=== PATIENT | female | born 1995 | race Caucasian/White ===

== ENCOUNTER 2016-12-30 19:41 | Emergency (ER) | payer MEDICAID ==
[2016-12-30 19:47] VITALS: BP 119/68
== END 2016-12-30 23:02 | disposition left against medical advice (07) ==
LOC: ED 19:41
DX: K08.89 Other specified disorders of teeth and supporting structures (principal); Z53.21 Procedure and treatment not carried out due to patient leaving prior to being seen by health care provider
CPT/HCPCS: 99281

== ENCOUNTER 2017-02-07 13:54 | Emergency (ER) | payer MEDICAID ==
[2017-02-07 14:00] VITALS: BP 114/69
--- NOTE | 2017-02-07 14:49 | UC ---
Complaint Female HPI - HPI Summary HPI Summary: TWO DAYS OF URINARY PRESSURE FREQUENCY, BURNING WITH URINATION. NO BACK PAIN. NO ABDOMINAL PAIN - History Of Current Complaint Chief Complaint: UCGU Stated Complaint: URINARY ISSUE Time Seen by Provider: 02/07/17 13:56 Hx Obtained From: Patient Hx Last Menstrual Period: 01/15/17 Onset/Duration: Gradual Onset, Lasting Days, Still Present Timing: Intermittent Severity Initially: Mild Severity Currently: Moderate Character: Dull, Burning Aggravating Factor(s): Urination Associated Signs And Symptoms: Negative: Fever, Back Pain, Vaginal Discharge, Nausea, Vomiting(# Of Episodes =) - Risk Factors Ectopic Risk Factor: Negative - Allergies/Home Medications Allergies/Adverse Reactions: Allergies Allergy/AdvReac Type Severity Reaction Status Date / Time No Known Allergies Allergy Verified 02/07/17 14:01 PMH/Surg Hx/FS Hx/Imm Hx Previously Healthy: Yes - Surgical History Surgical History: None - Family History Known Family History: Negative: Renal Disease - Social History Occupation: Employed Full-time Lives: With Family Alcohol Use: None Substance Use Type: None Smoking Status (MU): Never Smoked Tobacco - Immunization History Most Recent Influenza Vaccination: 03/31/2016 Most Recent Tetanus Shot: 03/31/2016 Most Recent Pneumonia Vaccination: none Review of Systems Constitutional: Negative Skin: Negative Eyes: Negative ENT: Negative Respiratory: Negative Cardiovascular: Negative Gastrointestinal: Negative Genitourinary: Dysuria, Frequency, Urgency Motor: Negative Neurovascular: Negative Musculoskeletal: Negative Neurological: Negative Psychological: Negative All Other Systems Reviewed And Are Negative: Yes Physical Exam Triage Information Reviewed: Yes Appearance: Well-Appearing, No Pain Distress, Well-Nourished Vital Signs: Initial Vital Signs Temp 98.8 F 02/07/17 13:56 Pulse 81 02/07/17 13:56 Resp 18 02/07/17 13:56 BP 114/69 02/07/17 13:56 Pulse Ox 100 02/07/17 13:56 Vital Signs Reviewed: Yes Eye Exam: Normal ENT Exam: Normal ENT: Positive: Normal ENT inspection, Hearing grossly normal, Pharynx normal, TMs normal Dental Exam: Normal Neck exam: Normal Neck: Positive: Supple, Nontender, No Lymphadenopathy Respiratory Exam: Normal Respiratory: Positive: Chest non-tender, Lungs clear, Normal breath sounds, No respiratory distress Cardiovascular Exam: Normal Cardiovascular: Positive: RRR, No Murmur, Pulses Normal Abdominal Exam: Normal Abdomen Description: Positive: Nontender, No Organomegaly, Soft. Negative: CVA Tenderness (R), CVA Tenderness (L) Musculoskeletal Exam: Normal Musculoskeletal: Positive: Strength Intact, ROM Intact Neurological Exam: Normal Psychological Exam: Normal Skin Exam: Normal Complaint Female Dx - Differential Dx/Diagnosis Differential Diagnosis/HQI/PQRI: Urinary Tract Infection Provider Diagnoses: URINARY TRACT INFECTION Discharge - Discharge Plan Condition: Stable Disposition: HOME Prescriptions: Phenazopyridine TAB* [Pyridium 100 mg TAB*] 100 mg PO TID PRN #15 tab PRN Reason: Pain Sulfamethox/Trimethoprim DS* [Bactrim DS 800/160 TAB*] 1 tab PO BID #10 tab Patient Education Materials: Urinary Tract Infection in Women (ED) [place]errals: [facility] [place] [facility] [place]] No Primary Care Phys,NOPCP [Primary Care Provider] -
== END 2017-02-07 14:40 | disposition home or self-care (01) ==
LOC: UCEAST 13:54
DX: N39.0 Urinary tract infection, site not specified (principal); Z32.02 Encounter for pregnancy test, result negative
CPT/HCPCS: 81003; 84702; 87086; 99212; G0463

== ENCOUNTER 2017-03-22 15:47 | Emergency (ER) | payer MEDICAID ==
[2017-03-22 15:57] VITALS: BP 96/58
--- NOTE | 2017-03-22 16:00 | UC ---
Dental HPI - HPI Summary HPI Summary: has an appointment for dental extraction of left lower 2nd molar on Thursday--- beginning Thursday patient had an increase in pain - History of Current Complaint Chief Complaint: UCDentalProblem Stated Complaint: TOOTHACHE Time Seen by Provider: 03/22/17 15:51 Hx Obtained From: Patient Hx Last Menstrual Period: 01/15/17 ?: No Onset/Duration: Gradual Onset, Still Present, Worse Since - 2 days ago Severity: Severe Pain Intensity: 10 Pain Scale Used: 0-10 Numeric Aggravating Factor(s): Heat, Cold, Chewing Alleviating Factor(s): Nothing Related History: Previous Dental Care on Same Tooth - Allergies/Home Medications Allergies/Adverse Reactions: Allergies Allergy/AdvReac Type Severity Reaction Status Date / Time No Known Allergies Allergy Verified 03/22/17 15:57 PMH/Surg Hx/FS Hx/Imm Hx Previously Healthy: Yes - Surgical History Surgical History: None - Family History Known Family History: Positive: None Negative: Renal Disease - Social History Occupation: Employed Full-time Lives: With Family Alcohol Use: None Substance Use Type: None Smoking Status (MU): Never Smoked Tobacco - Immunization History Most Recent Influenza Vaccination: 03/31/2016 Most Recent Tetanus Shot: 03/31/2016 Most Recent Pneumonia Vaccination: none Review of Systems Constitutional: Negative Skin: Negative Eyes: Negative ENT: Dental Pain Respiratory: Negative Cardiovascular: Negative Gastrointestinal: Negative Genitourinary: Negative Motor: Negative Neurovascular: Negative Musculoskeletal: Negative Neurological: Negative Psychological: Negative Is Patient Immunocompromised?: No All Other Systems Reviewed And Are Negative: Yes Physical Exam Triage Information Reviewed: Yes Appearance: Well-Appearing, No Pain Distress, Well-Nourished Vital Signs Reviewed: Yes Eye Exam: Normal Eyes: Positive: Conjunctiva Clear ENT Exam: Normal ENT: Positive: Normal ENT inspection, Hearing grossly normal, Pharynx normal, TMs normal. Negative: Nasal congestion, Nasal drainage, Tonsillar swelling, Tonsillar exudate, Trismus, Muffled/hoarse voice Dental Exam: Other Dental: Positive: Gross Decay/Caries @ - 2nd left lower molar Neck exam: Normal Neck: Positive: Supple, Nontender, No Lymphadenopathy Respiratory Exam: Normal Respiratory: Positive: Chest non-tender, Lungs clear, Normal breath sounds Cardiovascular Exam: Normal Cardiovascular: Positive: RRR, No Murmur, Pulses Normal Musculoskeletal Exam: Normal Musculoskeletal: Positive: Strength Intact, ROM Intact, No Edema Neurological Exam: Normal Neurological: Positive: Alert, Muscle Tone Normal Psychological Exam: Normal Skin Exam: Normal Dental Complaint Course/Dx - Course Course Of Treatment: Ibuprofen hydrocodone, heat follow up at dental office on March 25 as planned - Differential Dx/Diagnosis Provider Diagnoses: dental pain/dental caries Discharge - Discharge Plan Condition: Critical Disposition: HOME Prescriptions: Hydrocodone-Acetaminophen [Hydrocodone/Acetaminophen 5-325 mg] 1 tab PO Q6HR PRN #12 tab MDD 4 PRN Reason: dental pain Patient Education Materials: Toothache (ED) Forms: *Work Release Referrals: [facility] [place] [facility] [Outside] - If Needed
== END 2017-03-22 16:08 | disposition home or self-care (01) ==
LOC: UCEAST 15:47
DX: K02.9 Dental caries, unspecified (principal)
CPT/HCPCS: 99212; G0463

== ENCOUNTER 2018-11-02 16:01 | Emergency (ER) | payer OTHER ==
[2018-11-02 16:16] VITALS: BP 95/57
--- NOTE | 2018-11-02 17:27 | UC ---
Throat Pain/Nasal Dc HPI - HPI Summary HPI Summary: 23-year-old woman comes in with a chief complaint of left-sided sore throat and left ear pain. Started yesterday. She tried some Tylenol at did not help with the pain. Swallowing makes the pain worse. No fevers. Patient is . - History of Current Complaint Chief Complaint: UCEar Stated Complaint: EAR AND THROAT PAIN Time Seen by Provider: 11/02/18 17:17 Hx Last Menstrual Period: 01/15/17 Pain Intensity: 7 - Allergies/Home Medications Allergies/Adverse Reactions: Allergies Allergy/AdvReac Type Severity Reaction Status Date / Time No Known Allergies Allergy Verified 11/02/18 16:17 PMH/Surg Hx/FS Hx/Imm Hx Previously Healthy: Yes - Surgical History Surgical History: None - Family History Known Family History: Positive: None Negative: Renal Disease - Social History Alcohol Use: None Substance Use Type: None Smoking Status (MU): Never Smoked Tobacco - Immunization History Most Recent Influenza Vaccination: 03/31/2016 Most Recent Tetanus Shot: 03/31/2016 Most Recent Pneumonia Vaccination: none Review of Systems All Other Systems Reviewed And Are Negative: Yes Constitutional: Positive: Negative Skin: Positive: Negative Eyes: Positive: Negative ENT: Positive: Sore Throat, Ear Ache Respiratory: Positive: Negative Cardiovascular: Positive: Negative Gastrointestinal: Positive: Negative Motor: Positive: Negative Neurovascular: Positive: Negative Musculoskeletal: Positive: Negative Neurological: Positive: Negative Psychological: Positive: Negative Is Patient Immunocompromised?: No Physical Exam Triage Information Reviewed: Yes Appearance: Well-Appearing, No Pain Distress, Well-Nourished Vital Signs: Initial Vital Signs Temp 97.9 F 11/02/18 16:12 Pulse 100 11/02/18 16:12 Resp 12 11/02/18 16:12 BP 95/57 11/02/18 16:12 Pulse Ox 99 11/02/18 16:12 Vital Signs Reviewed: Yes Eye Exam: Normal Eyes: Positive: Conjunctiva Clear ENT: Positive: Pharyngeal erythema, TM bulging - left, TM dull - left, Tonsillar swelling - 1+ b/l, Uvula midline Neck: Positive: Supple, Nontender, No Lymphadenopathy, Other: - No swelling of submandibular glands appreciated on exam. Respiratory: Positive: Lungs clear, Normal breath sounds, No respiratory distress Cardiovascular: Positive: RRR Musculoskeletal Exam: Normal Musculoskeletal: Positive: Strength Intact, ROM Intact Neurological Exam: Normal Neurological: Positive: Alert, Muscle Tone Normal Psychological Exam: Normal Psychological: Positive: Normal Response To Family, Age Appropriate Behavior Skin Exam: Normal Throat Pain/Nasal Course/Dx - Course Course Of Treatment: Due to the swollen tonsil and Left PABLO, will Rx ABx. Discussed viral verses bacterial infections and the role of ABx. - Differential Dx/Diagnosis Provider Diagnosis: Left acute serous otitis media, Tonsillitis Discharge - Sign-Out/Discharge Documenting (check all that apply): Patient Departure All imaging exams completed and their final reports reviewed: No Studies - Discharge Plan Condition: Stable Disposition: HOME Prescriptions: Amoxicillin PO (*) [Amoxicillin 875 MG (*)] 875 mg PO BID #20 tab Patient Education Materials: Tonsillitis (ED), Serous Otitis Media (ED) Referrals: [facility] – [place] [facility] [Outside] Additional Instructions: FOLLOW UP WITH YOUR DOCTOR IF NOT COMPLETELY IMPROVED. GET RECHECKED SOONER IF YOUR CONDITION WORSENS OR ANY QUESTIONS OR CONCERNS. - Billing Disposition and Condition Condition: STABLE Disposition: Home
== END 2018-11-02 17:30 | disposition home or self-care (01) ==
LOC: UCEAST 16:01
DX: J03.90 Acute tonsillitis, unspecified (principal); H65.02 Acute serous otitis media, left ear
CPT/HCPCS: 99212; G0463

== ENCOUNTER 2019-01-04 17:53 | Inpatient (IN) | payer OTHER ==
[2019-01-04] MEDS ORDERED: Buffered Lidocaine 1% SYRIN* 1 ML/SYRINGE INTRADERM ONE (21:40)
[2019-01-04] MEDS ORDERED: Lactated Ringers 1000 ML Bag* 1,000 ML IV ONE (21:40)
[2019-01-04] MEDS ORDERED: Nalbuphine* 10 MG/ML 1 ML VIAL IV PRN (21:42)
[2019-01-04] MEDS ORDERED: Promethazine INJ(RESTRICTED)* 25 MG/ML 1 ML VIAL IV PRN (21:42)
[2019-01-04] MEDS ORDERED: Lactated Ringers 1000 ML Bag* 1,000 ML IV SCH (22:00)
[2019-01-04 22:12] LABS: Urine Benzodiazepine Screen None Detected (None Detect); Urine Opiates Screen None Detected (None Detect)
[2019-01-04 23:06] LABS: ABS Lymphocytes 1.9 10^3/ul (1.0-4.8); ABS Monocytes 0.5 10^3/ul (0-0.8); ABS Neutrophils 10.6 10^3/ul (1.5-7.7); Eosinophil % 0.1 %; Hematocrit 32 % (35-47); Hemoglobin 11.2 g/dL (12.0-16.0); Lymphocyte % 14.4 %; Mean Corpuscular HGB Conc 36 g/dL (31-36); Mean Corpuscular Hemoglobin 28 pg (27-31); Mean Corpuscular Volume 79 fL (80-97); Mean Platelet Volume 8.8 fL (7.4-10.4); Nucleated Red Blood Cells % 0.1; Platelet Count 235 10^3/uL (150-450); Red Blood Count 3.98 10^6 /uL (3.70-4.87); Red Cell Distribution Width 15 % (10-15)
[2019-01-05] MEDS ORDERED: OBEPIDURAL* 0 ML EPIDURAL ONE (01:59)
--- NOTE | 2019-01-05 02:36 | HP ---
General Information - Reason for Visit at term in labor. - General Information Maternal Age: 23 Grav: 4 Para: 1 SAB: 0 IEA: 2 Estimated Due Date: 01/05/19 Determined By: Early Ultrasound Gestational Age in Weeks/Days: 40 06/14 Maternal Blood Type and Rh: O Negative - Results this Serology/RPR Result: Non-Reactive Rubella Result: Non-Immune HBsAg Result: Negative HIV Result: Negative GBS Culture Result: Negative Past Medical History Delivery History: Hx Uncomplicated Vaginal Delivery, See Records Pertinent Past Medical History: See Records Past Medical History Comment: Depression/Anxiety Migraine headaches Chronic back pain Pertinent Past Surgical History: See Records Pertinent Family History: See Records - Antepartal Records Antepartal Records: Reviewed, Uncomplicated Review of Systems Constitutional: Uncomfortable CV Complaint: No Respiratory: Shortness of Breath: No Gastrointestinal: No Nausea/Vomiting, Normal Bowel Movement Genitourinary: No Dysuria, No Bleeding, No Leaking Fluid Musculoskeletal: Contractions Neurological: No Headache, No Visual Changes Movement: Normal Exam Allergies/Adverse Reactions: Allergies No Known Allergies Allergy (Verified 11/02/18 16:17) Temp 97.9 BP 112/68 P 89 RR 20 [id number] % RA Lab Values - Entire Visit: Laboratory Tests 01/04/19 01/04/19 01/04/19 21:43 22:30 22:30 WBC 13.0 H RBC 3.98 Hgb 11.2 L Hct 32 L MCV 79 L MCH 28 MCHC 36 RDW 15 Plt Count 235 MPV 8.8 Neut % (Auto) 81.4 Lymph % (Auto) 14.4 [place] % (Auto) 3.9 Eos % (Auto) 0.1 Baso % (Auto) 0.2 Absolute Neuts (auto) 10.6 H Absolute Lymphs (auto) 1.9 Absolute Monos (auto) 0.5 Absolute Eos (auto) 0.0 Absolute Basos (auto) 0.0 Absolute Nucleated RBC 0.0 Nucleated RBC % 0.1 Urine Opiates Screen None detected Ur Barbiturates Screen None detected Ur Phencyclidine Scrn None detected Ur Amphetamines Screen None detected U Benzodiazepines Scrn None detected Urine Cocaine Screen None detected U Cannabinoids Screen None detected Blood Type O Negative Antibody Screen Positive Antibody Identification Anti-D Direct Antiglob Test Negative - Measurements Height: 5 ft 7 in Weight: 148 lb Weight in lbs: [phone] Body Mass Index (BMI): 23.1 Pre- Weight: 112 lb Weight Gained This : 36 lbs and 0 ozs - Exam Breast: Breast Exam Deferred CVA: No CVA Tenderness Extremities: No Edema Heart: Normal Rhythm/Heart Sounds HEENT: No Significant Findings Lungs: Clear Bilaterally Rectal: Rectal Exam Deferred Reflexes: DTR 2+ Thyroid: No Thyromegaly - Abdominal Exam Abdomen Exam: Non-Tender, Fundal Height Consistent with Dates - Ultrasound/Biophysical Profile Ultrasound Status: Not Done Targeted Exam Findings See L&D Outpatient Visit Provider Note for Findings: N/A Cervical Exam: 9cm Effacement: 80% Station: 0 Presenting Part: Vertex Membrane Status: Intact Bleeding/Discharge: None EFM Findings - External Monitor Findings Baseline Heart Rate: 140 External Monitor Findings: Accelerations Present Contractions: Regular, Strong, 45-90 Seconds Assessment/Plan - Assessment in labor. - Plan Plan: IV Hydration, Admit - Anticipate Vaginal Delivery - Date/Time of Admission Date of Admission: 01/04/19 Time of Admission: 17:10
[2019-01-05] MEDS ORDERED: Sodium Citrate/Citric Acid* 15 ML UDC PO PRN (02:56)
[2019-01-05] MEDS ORDERED: Phenylephrine 40 MCG/ML SYRINGE IV PUSH PRN ×2 (02:56)
[2019-01-05] MEDS ORDERED: Lactated Ringers 1000 ML Bag* 1,000 ML IV ONE (02:56)
[2019-01-05] MEDS ORDERED: Lactated Ringers 1000 ML Bag* 1,000 ML IV SCH ×2 (03:00→08:00)
[2019-01-05] MEDS ORDERED: Oxytocin in LR* 20 UNITS/1,000 ML BAG IVPB ONE (07:21)
[2019-01-05] MEDS ORDERED: Witch Hazel PAD* JAR TOPICAL PRN (07:31)
[2019-01-05] MEDS ORDERED: Glycerin ADULT SUPP PR PRN (07:31)
[2019-01-05] MEDS ORDERED: Dibucaine 1% 28.35 GM TUBE PR PRN (07:31)
--- NOTE | 2019-01-05 07:35 | PROCNOTE ---
[facility] OB: Delivery Note - Delivery B Time of : 07:15 Roy Sex: Female Roy Weight at : 7 lb 7 oz Score 1 Minute: 8 Score 5 Minutes: 9 Gestational Age in Weeks and Days at Delivery: Missing required information. Delivery Method: Low Vacuum Extraction, Vaginal - outlet extraction Did Patient attempt ?: N/A, No Previous Amniotic Fluid: Clear Estimated Blood Loss: 200 Anesthesia/Analgesia: ITF/Spinal for Labor, Nitrous-Labor Delivered By: Goldy Baird - Nursery Level of Nursery: Regular/Bedside - Perineum Perineal Injury: Midline Episiotomy Perineal Repair: By Delivering Practioner - Events Delivery Events of Note: None Apply
[2019-01-05] MEDS ORDERED: Lidocaine 1% INJ* 10 MG/ML 30 ML SDV ONE (07:44)
[2019-01-05] MEDS ORDERED: Simethicone TAB* 80 MG TAB.CHEW PO SCH (08:30)
[2019-01-05] MEDS: Ibuprofen TAB* 600 MG PO PRN ×3 (08:34→20:27)
[2019-01-05] MEDS: Acetaminophen TAB* 325 MG PO PRN ×4 (08:35→22:37)
[2019-01-05] MEDS: Docusate CAP* 100 MG PO SCH ×3 (14:36→20:27)
[2019-01-06] MEDS: Acetaminophen TAB* 325 MG PO PRN ×4 (02:32→20:02)
[2019-01-06] MEDS: Ibuprofen TAB* 600 MG PO PRN ×3 (02:32→13:20)
[2019-01-06 06:35] LABS: ABS Basophils 0.1 10^3/ul (0-0.2); ABS Eosinophils 0.1 10^3/ul (0-0.6); ABS Lymphocytes 2.3 10^3/ul (1.0-4.8); ABS Monocytes 0.8 10^3/ul (0-0.8); ABS Neutrophils 10.2 10^3/ul (1.5-7.7); Eosinophil % 0.4 %; Hematocrit 29 % (35-47); Hemoglobin 10.1 g/dL (12.0-16.0); Lymphocyte % 17.4 %; Mean Corpuscular HGB Conc 34 g/dL (31-36); Mean Corpuscular Hemoglobin 28 pg (27-31); Mean Corpuscular Volume 81 fL (80-97); Mean Platelet Volume 8.4 fL (7.4-10.4); Platelet Count 172 10^3/uL (150-450); Red Blood Count 3.63 10^6 /uL (3.70-4.87); Red Cell Distribution Width 14 % (10-15); White Blood Count 13.4 10^3/uL (3.5-10.8)
[2019-01-06] MEDS: Docusate CAP* 100 MG PO SCH ×3 (07:45→20:02)
[2019-01-06] MEDS: Ferrous Gluconate TAB* 324 MG TAB PO SCH ×2 (07:50→21:35)
--- NOTE | 2019-01-06 10:04 | PN ---
Progress Note - Progress Note Date of Service: 01/06/19 - PPD#1 Note: Patient is PPD#1 s/p spontaneous vaginal delivery. Patient is doing well . Her pain is controlled. She is breast and bottle feeding . She is GBS negative. She is Rh negative with +antibody screen, negative Anti D , negative, direct antiglobin test negative. Her vaginal bleeding has slowed. She had no difficulty with urination. Vital Signs Temp 98.0 F 01/06/19 07:42 Pulse 83 01/06/19 07:42 Resp 16 01/06/19 07:42 BP 104/49 01/06/19 07:42 Pulse Ox 99 01/05/19 19:44 Fundus firm, nontender lochia scant extremities nontender, no edema Laboratory Results - last 24 hr 01/06/19 01/06/19 06:21 06:21 WBC 13.4 H RBC 3.63 L Hgb 10.1 L Hct 29 L MCV 81 MCH 28 MCHC 34 RDW 14 Plt Count 172 MPV 8.4 Neut % (Auto) 76.0 Lymph % (Auto) 17.4 [place] % (Auto) 5.7 Eos % (Auto) 0.4 Baso % (Auto) 0.5 Absolute Neuts (auto) 10.2 H Absolute Lymphs (auto) 2.3 Absolute Monos (auto) 0.8 Absolute Eos (auto) 0.1 Absolute Basos (auto) 0.1 Absolute Nucleated RBC 0.0 Nucleated RBC % 0.0 Blood Type O Negative Screen Negative Assessment: PPD#1, Mother is Rh negative, negative anti-D, baby is Rh positive Plan: Will order Rhogam injection for mother, continue supportive care Claudia Hernandez MD
[2019-01-06] MEDS ORDERED: RHO D Immune Globulin (HUMAN)* 300 MCG = 1,500 I.U. INJ IM ONE (10:05)
[2019-01-07] MEDS: Docusate CAP* 100 MG PO SCH (08:17)
[2019-01-07] MEDS: Ferrous Gluconate TAB* 324 MG TAB PO SCH (08:17)
[2019-01-07 08:29] VITALS: BP 116/60
== END 2019-01-07 10:44 | disposition home or self-care (01) | DRG 560 ==
LOC: MCHOBOUT 17:53 → MCHOB 21:25
PROVIDERS: ADMIT Obstetrics & Gynecology; ATTEND Obstetrics & Gynecology
PROC: 10D07Z6 Extraction of Products of Conception, Vacuum, Via Natural or Artificial Opening (ICD-10-PCS; principal; 2019-01-05)
PROC: 4A1HXCZ Monitoring of Products of Conception, Cardiac Rate, External Approach (ICD-10-PCS; 2019-01-05)
PROC: 10907ZC Drainage of Amniotic Fluid, Therapeutic from Products of Conception, Via Natural or Artificial Opening (ICD-10-PCS; 2019-01-05)
PROC: 0W8NXZZ Division of Female Perineum, External Approach (ICD-10-PCS; 2019-01-05)
PROC: 3E0234Z Introduction of Serum, Toxoid and Vaccine into Muscle, Percutaneous Approach (ICD-10-PCS; 2019-01-06)
DX: O48.0 Post-term pregnancy (principal); Z37.0 Single live birth; O90.81 Anemia of the puerperium; Z67.41 Type O blood, Rh negative; Z3A.40 40 weeks gestation of pregnancy
CPT/HCPCS: 36415; 80307; 85025; 85461; 86850; 86870; 86880; 86900; 86901; A9270-GY; J2790

== ENCOUNTER 2019-08-01 02:36 | Emergency (ER) | payer OTHER ==
[2019-08-01] MEDS: NS 0.9% 1000 ML** 2,000 ML IV ONE ×2 (03:07→03:10)
--- NOTE | 2019-08-01 03:15 | ED ---
Complex/Multi-Sys Presentation - HPI Summary HPI Summary: Patient is a 24 y/o F presenting to [facility] with complaints of fever, N/V, back pain, and abdominal cramping. The patient states that she had a medical four days ago. She notes that she was 8 weeks and 2 days at the time, she took all the pills in one day. Around two days ago, she experienced onset of lower back pain and abdominal cramping. She notes N/V as well. Patient measured her temperature to be 103.9 F. Patient has been passing blood clots as well. She states that she took ibuprofen approximately one hour SPOT WELDER. She notes that she has a scheduled followup with [facility], where she [facility] her , in two weeks but came to ED due to severity of her Sx. Home medications and allergies are reviewed. Home Medications Medication Instructions Recorded Confirmed Type Vitamin Tablet 1 tab PO DAILY 01/04/19 01/04/19 History Acetaminophen TAB* [Tylenol TAB*] 650 mg PO Q4H PRN tab 01/07/19 Rx Docusate CAP* [Colace Cap*] 100 mg PO BID PRN #30 cap 01/07/19 Rx Ferrous Gluconate TAB* [Fergon 324 mg PO BID #60 tab 01/07/19 Rx TAB*] Ibuprofen TAB* [Motrin TAB* 600 MG] 600 mg PO Q6H PRN #30 tab 01/07/19 Rx - History Of Current Complaint Chief Complaint: EDFever Time Seen by Provider: 08/01/19 02:49 Hx Obtained From: Patient Onset/Duration: Lasting Days, Still Present Timing: Days Location: Pain At: - back, abdomen Character: Throbbing - cramping Associated Signs And Symptoms: Positive: Nausea, Vomiting, Abdominal Pain, Back Pain, Fever, Other - positive - passing blood clots - Allergies/Home Medications Allergies/Adverse Reactions: Allergies Allergy/AdvReac Type Severity Reaction Status Date / Time No Known Allergies Allergy Verified 08/01/19 02:39 Home Medications: Home Medications Vitamin Tablet 1 tab PO DAILY 01/04/19 [History Confirmed 01/04/19] Acetaminophen TAB* [Tylenol TAB*] 650 mg PO Q4H PRN tab 01/07/19 [Rx] Docusate CAP* [Colace Cap*] 100 mg PO BID PRN #30 cap 01/07/19 [Rx] Ferrous Gluconate TAB* [Fergon TAB*] 324 mg PO BID #60 tab 01/07/19 [Rx] Ibuprofen TAB* [Motrin TAB* 600 MG] 600 mg PO Q6H PRN #30 tab 01/07/19 [Rx] PMH/Surg Hx/FS Hx/Imm Hx Endocrine/Hematology History: Denies: Hx Diabetes, Hx Thyroid Disease Cardiovascular History: Denies: Hx Hypertension Comment Only: Hx 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 11 Respiratory History: Denies: Hx Asthma, Hx Chronic Obstructive Pulmonary Disease (COPD) GI History: Denies: Hx Ulcer History: Reports: Hx Renal Disease Psychiatric History: Reports: Hx Anxiety, Hx Depression Infectious Disease History: No Infectious Disease History: Denies: Hx Clostridium Difficile, Hx Hepatitis, Hx Human Immunodeficiency Virus (HIV), Hx of Known/Suspected MRSA, Hx Shingles, Hx Tuberculosis, Hx Known/ Suspected VRE, Hx Known/Suspected VRSA, History Other Infectious Disease, Traveled Outside the [place] in Last 30 Days - Family History Known Family History: Negative: Renal Disease - Social History Alcohol Use: None Substance Use Type: Reports: None Smoking Status (MU): Never Smoked Tobacco Review of Systems Positive: Fever Positive: Abdominal Pain, Vomiting, Nausea Positive: other - passing blood clots Positive: Other - back pain All Other Systems Reviewed And Are Negative: Yes Physical Exam - Summary Physical Exam Summary: Appearance: Well-appearing, Well-nourished, Non-toxic, no obvious distress, afebrile Skin: Warm, dry, no obvious rash Eyes: sclera anicteric, no conjunctival pallor HENT: mucous membranes moist, pharynx appears normal Neck: Supple, nontender Respiratory: Clear to auscultation, no signs of respiratory distress Cardiovascular: Tachycardic, Normal S1, S2. No murmurs. Normal distal pulses in tibial and radial bilaterally. Abdomen: Soft, minimal lower abdominal tenderness without rebound or guarding, normal active bowel sounds present Musculoskeletal: Normal, Strength/ROM Intact Neurological: A&Ox3, awake and alert, mentation is normal, speech is fluent and appropriate Psychiatric: affect is normal, does not appear anxious or depressed Triage Information Reviewed: Yes Vital Signs On Initial Exam: Initial Vitals Temp Pulse Resp BP Pulse Ox 97.6 F 122 15 108/86 98 08/01/19 02:37 08/01/19 02:37 08/01/19 02:37 08/01/19 02:37 08/01/19 02:37 Vital Signs Reviewed: Yes Procedures - Sedation Patient Received Moderate/Deep Sedation with Procedure: No Diagnostics - Vital Signs Vital Signs Temp Pulse Resp BP Pulse Ox 08/01/19 02:37 97.6 F 122 15 108/86 98 - Laboratory Result Diagrams: 08/01/19 03:12 08/01/19 03:12 Lab Statement: Any lab studies that have been ordered have been reviewed, and results considered in the medical decision making process. Re-Evaluation - Re-Evaluation First Eval Re-Evaluation Time: 04:59 Comment: Consult, workup so far discussed with the patient. Complex Multi-Symp Course/Dx Course Of Treatment: Patient is a 24 y/o F presenting to [facility] with complaints of fever, N/V, back pain, and abdominal cramping. The patient states that she had a medical four days ago. She notes that she was 8 weeks and 2 days at the time, she took all the pills in one day. Around two days ago, she experienced onset of lower back pain and abdominal cramping. She notes N/V as well. Patient measured her temperature to be 103.9 F. Patient has been passing blood clots as well. She states that she took ibuprofen approximately one hour SPOT WELDER. She notes that she has a scheduled followup with [facility], where she [facility] her , in two weeks but came to ED due to severity of her Sx. Patient is non-toxic in appearance and in no obvious distress. She is afebrile. Tachycardia and minimal lower abdominal tenderness without rebound or guarding noted. Bloodwork was obtained, abnormal values include absolute neuts 9.4, absolute lymphs 0.9, INR 1.11, sodium 134, potassium 3.1, glucose 104, AST 12, CRP 24.74. UA showed 3+ blood, 2+ leukocyte esterase, 2_ WBC, trace RBC, squamous epith cells present. During ED course, patient received fluids. 0450 Patients case was discussed with Dr. Frances, he notes that the patients presentation does not sound like a septic and no antibiotics recommended at this time. Patient can follow up with OB on outpatient basis. Patient to be tested for influenza. She was also given toradol 10 mg IV. Influenza A and B were negative. Patient discharged to home with OB followup. - Diagnoses Provider Diagnoses: Pelvic pain, Fever - Physician Notifications Discussed Care Of Patient With: Will Frances JR Time Discussed With Above Provider: 04:50 Instructed by Provider To: Other - 0450 Patients case was discussed with Dr. Frances, he notes that the patients presentation does not sound like a septic and no antibiotics recommended at this time. Patient can follow up with OB on outpatient basis. Discharge ED - Sign-Out/Discharge Documenting (check all that apply): Patient Departure - discharge - Discharge Plan Condition: Good Disposition: HOME Patient Education Materials: Fever in Adults (ED), Endometritis (ED) Referrals: Will Frances JR, [Doctor of Osteopathy] - Additional Instructions: Your blood work was reassuring and the flu swab was negative. Your symptoms could still be from the aftereffects of the medical but with the fever I do think you need close followup with either [facility] or Dr. Frances's office within 48 hrs. You can take motrin in the meantime to help with pain. - Attestation Statements Document Initiated by Scribe: Yes Documenting Scribe: RENAN MCCARTHY Provider For Whom Mike is Documenting (Include Credential): JANA QUICK MD Scribe Attestation: I, RENAN MCCARTHY, scribed for JANA QUICK MD on 08/01/19 at 0606. Status of Scribe Document: Ready
[2019-08-01 03:22] LABS: ABS Lymphocytes 0.9 10^3/ul (1.0-4.8); ABS Monocytes 0.4 10^3/ul (0-0.8); ABS Neutrophils 9.4 10^3/ul (1.5-7.7); Eosinophil % 0.2 %; Hematocrit 35 % (35-47); Hemoglobin 12.4 g/dL (12.0-16.0); Mean Corpuscular HGB Conc 36 g/dL (31-36); Mean Corpuscular Hemoglobin 29 pg (27-31); Mean Corpuscular Volume 82 fL (80-97); Mean Platelet Volume 8.5 fL (7.4-10.4); Nucleated Red Blood Cells % 0.1; Platelet Count 233 10^3/uL (150-450); Red Blood Count 4.23 10^6 /uL (3.70-4.87); Red Cell Distribution Width 14 % (10-15); White Blood Count 10.7 10^3/uL (3.5-10.8)
[2019-08-01 03:30] LABS: Activated Partial Thrombo Time 31.4 seconds (26.0-38.0); INR 1.11 (0.82-1.09)
[2019-08-01 03:37] LABS: Albumin 4.4 g/dL (3.2-5.2); Albumin/Globulin Ratio 1.6 (1-3); C Reactive Protein 24.74 mg/L (<8.01); EGFR African American 117.5 (>60); EGFR Non-African American 97.1 (>60); Globulin 2.7 g/dL (2-4); Potassium 3.1 mmol/L (3.5-5.0); Total Bilirubin 0.7 mg/dL (0.2-1.0); Total Protein 7.1 g/dL (6.4-8.9)
[2019-08-01 04:17] LABS: Urine Appearance Clear; Urine Bilirubin Negative (Negative); Urine Blood 3+ (Negative); Urine Color Yellow; Urine Glucose Negative (Negative); Urine Ketones Negative (Negative); Urine Nitrite Negative (Negative); Urine Protein Negative (Negative); Urine Specific Gravity 1.003 (1.010-1.030); Urine Urobilinogen Negative (Negative)
[2019-08-01 04:19] LABS: Urine Bacteria Absent (Absent); Urine Red Blood Cell Trace(0-2/hpf) (Absent); Urine Squamous Epithelial Cell Present (Absent); Urine White Blood Cell 2+(11-20/hpf) (Absent)
[2019-08-01] MEDS ORDERED: Ketorolac INJ* 30 MG/ML 1 ML VIAL IV PUSH ONE (04:45)
[2019-08-01 05:56] LABS: Influenza A Molecular Negative (Negative); Influenza B Molecular Negative (Negative)
[2019-08-01 06:17] VITALS: BP 117/70
== END 2019-08-01 06:17 | disposition home or self-care (01) ==
LOC: ED 02:36
DX: R10.2 Pelvic and perineal pain (principal); R50.9 Fever, unspecified; R11.2 Nausea with vomiting, unspecified; M54.5 Low back pain; Z95.810 Presence of automatic (implantable) cardiac defibrillator
CPT/HCPCS: 36415; 80053; 81003; 81015; 83605; 84484; 85025; 85610; 85730; 86140; 87040; 87086; 96361; 96374; 99283; J1885

== ENCOUNTER 2021-01-12 07:04 | Inpatient (IN) ==
[2021-01-12] MEDS ORDERED: fentaNYL 100 mcg/2 ml 50 MCG/ML VIAL ONE (08:44)
[2021-01-12] MEDS ORDERED: Oxytocin in LR 20 UNITS/1,000 ML BAG IVPB ONE (08:45)
[2021-01-12 08:55] LABS: Hematocrit 32 % (35-47); Hemoglobin 11.9 g/dL (12.0-16.0); Mean Corpuscular HGB Conc 37 g/dL (31-36); Mean Corpuscular Hemoglobin 31 pg (27-31); Mean Corpuscular Volume 85 fL (80-97); Mean Platelet Volume 7.9 fL (7.4-10.4); Platelet Count 218 10^3/uL (150-450); Red Blood Count 3.83 10^6 /uL (3.70-4.87); Red Cell Distribution Width 16 % (10-15); White Blood Count 14.5 10^3/uL (3.5-10.8)
[2021-01-12] MEDS ORDERED: Lactated Ringers 1000 ml BAG 1,000 ML IV ONE (09:09)
[2021-01-12] MEDS ORDERED: Buffered Lidocaine 1% SYRIN 1 ml INTRADERM ONE (09:09)
[2021-01-12] MEDS ORDERED: RHO D Immune Globulin (HUMAN) 300 MCG = 1,500 I.U. INJ IM PRN (09:18)
[2021-01-12] MEDS ORDERED: Witch Hazel PAD JAR TOPICAL PRN (09:18)
[2021-01-12] MEDS ORDERED: Dibucaine 1% OINT 28.35 GM TUBE PR PRN (09:18)
[2021-01-12] MEDS ORDERED: Witch Hazel PAD JAR ONE (09:23)
[2021-01-12] MEDS ORDERED: Dibucaine 1% OINT 28.35 GM TUBE ONE (09:23)
[2021-01-12] MEDS ORDERED: Lactated Ringers 1000 ml BAG 1,000 ML IV SCH ×2 (10:00)
[2021-01-12] MEDS ORDERED: Oxytocin in LR 20 UNITS/1,000 ML BAG IVPB SCH (10:00)
[2021-01-12 20:38] LABS: Urine Benzodiazepine Screen None Detected (None Detect); Urine Cannabinoids Screen None Detected (None Detect); Urine Opiates Screen None Detected (None Detect)
[2021-01-13 06:37] LABS: ABS Eosinophils 0.1 10^3/ul (0-0.6); ABS Lymphocytes 1.2 10^3/ul (1.0-4.8); ABS Monocytes 0.7 10^3/ul (0-0.8); ABS Neutrophils 11.2 10^3/ul (1.5-7.7); Eosinophil % 0.4 %; Hematocrit 29 % (35-47); Hemoglobin 10.4 g/dL (12.0-16.0); Lymphocyte % 9.2 %; Mean Corpuscular HGB Conc 36 g/dL (31-36); Mean Corpuscular Hemoglobin 31 pg (27-31); Mean Corpuscular Volume 87 fL (80-97); Mean Platelet Volume 8.2 fL (7.4-10.4); Platelet Count 167 10^3/uL (150-450); Red Blood Count 3.35 10^6 /uL (3.70-4.87); Red Cell Distribution Width 16 % (10-15); White Blood Count 13.2 10^3/uL (3.5-10.8)
[2021-01-13 08:03] VITALS: BP 104/56
[2021-01-13] MEDS ORDERED: RHO D Immune Globulin (HUMAN) 300 MCG = 1,500 I.U. INJ IM ONE (12:11)
== END 2021-01-13 14:37 | disposition home or self-care (01) | DRG 560 ==
LOC: MCHOBOUT 07:04 → MCHOB 08:35
PROVIDERS: ADMIT Obstetrics & Gynecology; ATTEND Obstetrics & Gynecology